=== PATIENT | female | born 1980 | race Two or more races ===

== ENCOUNTER 2017-04-07 13:58 | Emergency (ER) | payer SELFPAY ==
[2017-04-07 14:04] VITALS: BP 125/76; BMI 32.9
--- NOTE | 2017-04-07 14:31 | DR.FBACK ---
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 - Reviewed Nurses Notes Review: Yes - Source History Provided: Patient - Mode of Arrival Mode of Arrival: Ambulatory - Timing Onset of Chief Complaint: 04/06/17 - Duration Duration: Constant How lon Duration: Days - Location Back Pain Location: Right, Lumbar Radiation To: None - Severity Severity: Moderate - Quality Quality: Sharp - Context Onset: Bending, Lifting Circumstance: Work Related (repetitive lifting) History of: None - Modifying Factors Worsened By: Movement - Associated Signs and Symptoms Back Pain Symptoms: Nausea, Vomiting Numbness: None Weakness: None PMH - PMH Past Medical History: No Past Surgical History: No - Family History History of Family Medical Conditions: No - Social History Does patient currently use any type of tobacco product: No Have you used tobacco products in the last 12 months: No Type of Tobacco Use: None Does any household member use tobacco: No Alcohol Use: None Do you use any recreational Drugs:: No Lives With: Family Lives Where: Home - infectious screening In the last 2 months have you had wt loss of >10#?: NO Have you had fever, night sweats or hemotysis?: No Have you traveled outside the country in the last 6 months?: No Isolation: Standard ROS - Review of Systems Constitutional: No Symptoms Reported Eyes: No Symptoms Reported ENTM: No Symptoms Reported Respiratoy: No Symptoms Reported Cardiovascular: No Symptoms Reported Gastrointestinal/Abdominal: No Symptoms Reported Genitourinary: No Symptoms Reported Neurological: No Symptoms Reported Musculoskeletal: Back Pain Integumentary: No Symptoms Reported Hematologic/Lymphatic: No Symptoms Reported Endocrine: No Symptoms Reported Psychiatric: No Symptoms Reported PE - Vitals Vital Signs: Temp Pulse Resp BP Pulse Ox 04/07/17 14:01 96.9 F L 85 20 125/76 98 - General Limitations: No Limitations General Appearance: Alert, In No Apparent Distress - Head Head Exam: Normal Inspection - Eyes Eye exam: Normal Appearance, EOMI. negative: Scleral Icterus, Conjunctival Injection - ENT ENT Exam: Normal Exam, Normal Oropharynx - Cardiovascular Cardiovascular Exam: Regular Rate - Abdominal Exam Abdominal Exam: Normal Inspection, Normal Bowel Sounds, Soft, Distention. negative: Tenderness, Guarding - Extremities Extremities Exam: Normal Inspection, Full ROM - Back Back Exam: Normal Inspection, Full ROM, Tenderness (pain with POM) - Neurological Neurological Exam: Alert, Oriented X3, CN II-XII Intact - Psychiatric Psychiatric Exam: Normal Affect - Skin Skin Exam: Intact, Normal Color ROR - Labs Reviewed Laboratory: Specimen Type Cancelled 04/07/17 14:49 Urine Color Cancelled 04/07/17 14:49 Urine Appearance Cancelled 04/07/17 14:49 Urine pH Cancelled 04/07/17 14:49 Ur Specific [place] Cancelled 04/07/17 14:49 Urine Protein Cancelled 04/07/17 14:49 Urine Glucose (UA) Cancelled 04/07/17 14:49 Urine Ketones Cancelled 04/07/17 14:49 Urine Occult Blood Cancelled 04/07/17 14:49 Urine Nitrite Cancelled 04/07/17 14:49 Urine Bilirubin Cancelled 04/07/17 14:49 Urine Urobilinogen Cancelled 04/07/17 14:49 Ur Leukocyte Esterase Cancelled 04/07/17 14:49 Urine RBC Cancelled 04/07/17 14:49 Urine WBC Cancelled 04/07/17 14:49 Ur Squamous Epith Cells Cancelled 04/07/17 14:49 Ur Transition Epith Cell Cancelled 04/07/17 14:49 Ur Renal Epithelial Cell Cancelled 04/07/17 14:49 Calcium Oxalate Crystal Cancelled 04/07/17 14:49 Cystine Crystals Cancelled 04/07/17 14:49 Uric Acid Crystals Cancelled 04/07/17 14:49 Triple Phos Crystals Cancelled 04/07/17 14:49 Tyrosine Crystals Cancelled 04/07/17 14:49 Other Crystals Cancelled 04/07/17 14:49 Amorphous Sediment Cancelled 04/07/17 14:49 Urine Bacteria Cancelled 04/07/17 14:49 Hyaline Casts Cancelled 04/07/17 14:49 Granular Casts Cancelled 04/07/17 14:49 Fine Granular Casts Cancelled 04/07/17 14:49 Coarse Granular Casts Cancelled 04/07/17 14:49 WBC Casts Cancelled 04/07/17 14:49 Other Casts Cancelled 04/07/17 14:49 Urine Mucus Cancelled 04/07/17 14:49 Urine Trichomonas Cancelled 04/07/17 14:49 Urine Yeast Cancelled 04/07/17 14:49 Urine Sperm Cancelled 04/07/17 14:49 Ur Culture Indicated? Cancelled 04/07/17 14:49 - Diagnosis Discharge Problem: UTI (urinary tract infection) Qualifiers: Urinary tract infection type: acute cystitis Hematuria presence: with hematuria Qualified Code(s): N30.01 - Acute cystitis with hematuria Back strain Qualifiers: Encounter type: initial encounter Qualified Code(s): S39.012A - Strain of muscle, fascia and tendon of lower back, initial encounter - Discharge Plan Condition: Stable Prescriptions: Nitrofurantoin Monohyd Macro [Macrobid] 100 mg PO BID #20 cap - Follow ups/Referrals Follow ups/Referrals: NFD,None [Primary Care Provider] - 3 days - Instructions
[2017-04-07 15:26] LABS: APPEARANCE,URINE CLOUDY (CLEAR); BILIRUBIN,URINE NEGATIVE (NEGATIVE); BLOOD/HEMOGLOBIN,URINE 1+ (NEGATIVE); COLOR,URINE YELLOW (YELLOW); GLUCOSE, URINE NEGATIVE (NEGATIVE); KETONES,URINE NEGATIVE (NEGATIVE); LEUKOCYTE ESTERASE ,URINE 2+ (NEGATIVE); NITRITES,URINE POSITIVE (NEGATIVE); PROTEIN,URINE 2+ (NEGATIVE); UROBILINOGEN,URINE NORMAL (NORMAL)
[2017-04-07 15:27] LABS: BACTERIA,URINE 3+ /HPF (NEGATIVE); RBC,URINE RARE /HPF (NEGATIVE); SQUAMOUS EPITHELIAL CELL,UR MODERATE /HPF (NEGATIVE)
== END 2017-04-07 16:15 | disposition home or self-care (01) ==
LOC: ER 14:10
DX: S39.012A Strain of muscle, fascia and tendon of lower back, initial encounter (principal); N30.01 Acute cystitis with hematuria; X50.0XXA Overexertion from strenuous movement or load, initial encounter; Y92.69 Other specified industrial and construction area as the place of occurrence of the external cause
CPT/HCPCS: 81001; 87086; 87088; 87186; 99282